=== PATIENT | female | born 1940 | race Caucasian/White ===

== ENCOUNTER 2020-10-22 08:15 | Emergency (ER) | payer MEDICARE ==
[~2020-10-22] VITALS: Ht 160 cm; Wt 81.8 kg
[~2020-10-22 08:15] MED LIST: ASCO500C18 PO; CLON0.3T PO; DILT120T3; FERR325T32 PO; MELA3TAB39 PO; METO50TA17 PO; ONDA-103 PO; PRED10TA23 PO; TRIA1CAP6 PO
[2020-10-22 09:37] LABS: BASOPHILS # (AUTO) 0.1 X10'3 (0-0.2); EOSINOPHILS # (AUTO) 0.2 X10'3 (0-0.9); HEMOGLOBIN 9.8 g/dl (12.0-16.0); LYMPHOCYTES % (AUTO) 21.2 % (21-51); MONOCYTES # (AUTO) 0.7 X10'3 (0-0.9)
[2020-10-22 09:39] LABS: EOSINOPHILS % (AUTO) 3.4 % (0-6); HEMATOCRIT 27.8 % (35.0-45.0); LYMPHOCYTES # (AUTO) 1.5 X10'3 (1.1-4.8); MEAN CORPUSCULAR HEMOGLOBIN 36.3 PG (27.0-31.0); MEAN CORPUSCULAR HGB CONC 35.3 g/dL (33.0-36.5); MEAN CORPUSCULAR VOLUME 102.8 FL (78-98); MEAN PLATELET VOLUME 7.3 FL (7.4-10.4); MONOCYTES % (AUTO) 9.6 % (2-12); NEUTROPHILS # (AUTO) 4.7 X10'3 (1.8-7.7); NEUTROPHILS % (AUTO) 64.8 % (42-75); PLATELET COUNT 261 X10'3 (140-440); RED CELL DISTRIBUTION WIDTH 20.8 % (11.5-14.5); WHITE BLOOD COUNT 7.3 X10'3 (4.5-11.0)
[2020-10-22 09:48] LABS: ALANINE AMINOTRANSFERASE 23 U/L (12-78); ALBUMIN 3.7 G/DL (3.4-5.0); ALBUMIN/GLOBULIN RATIO 0.9 (1.1-1.5); ALKALINE PHOSPHATASE 99 IU/L (46-116); ANION GAP 10 (8-16); ASPARTATE AMINO TRANSFERASE 39 U/L (10-37); BILIRUBIN,TOTAL 1.2 MG/DL (0.1-1.0); BLOOD UREA NITROGEN 15 MG/DL (7-18); BUN/CREATININE RATIO 16.3 (6.6-38.0); CALCIUM 8.9 MG/DL (8.5-10.1); CHLORIDE 104 MMOL/L (99-107); CREATININE 0.92 MG/DL (0.40-0.90); GLUCOSE 119 MG/DL (70-104); POTASSIUM 3.3 MMOL/L (3.5-5.1); SODIUM 145 MMOL/L (135-145); TOTAL CARBON DIOXIDE 31.2 MMOL/L (24-32); TOTAL PROTEIN 7.9 G/DL (6.4-8.2); eGFR 59 ML/MIN
[2020-10-22 11:25] LABS: HEMATOCRIT 26.6 % (35.0-45.0); HEMOGLOBIN 9.2 g/dl (12.0-16.0); MEAN CORPUSCULAR HEMOGLOBIN 36.1 PG (27.0-31.0); MEAN CORPUSCULAR HGB CONC 34.8 g/dL (33.0-36.5); MEAN CORPUSCULAR VOLUME 103.7 FL (78-98); MEAN PLATELET VOLUME 7.1 FL (7.4-10.4); PLATELET COUNT 239 X10'3 (140-440); RED BLOOD COUNT 2.56 X10'6 (4.20-5.60); RED CELL DISTRIBUTION WIDTH 20.9 % (11.5-14.5); WHITE BLOOD COUNT 8.2 X10'3 (4.5-11.0)
[2020-10-22 11:58] VITALS: BP 105/58
== END 2020-10-22 12:02 | disposition home or self-care (01) ==
LOC: ER 08:15
DX: R53.83 Other fatigue (principal); R53.1 Weakness; F17.200 Nicotine dependence, unspecified, uncomplicated; Z86.73 Personal history of transient ischemic attack (TIA), and cerebral infarction without residual deficits; Z88.5 Allergy status to narcotic agent; Z88.1 Allergy status to other antibiotic agents; Z88.0 Allergy status to penicillin; Z79.899 Other long term (current) drug therapy
CPT/HCPCS: 36415; 80053; 85025; 85027; 85610; 93005; 99284

== ENCOUNTER 2021-02-01 07:13 | Day surgery (SDC) | payer MEDICARE ==
[~2021-02-01] VITALS: Ht 160 cm; Wt 68.2 kg
[2021-02-01 07:35] VITALS: BP 143/79
[2021-02-01] MEDS ORDERED: fentaNYL/PF 50MCG/1 ML 2ML syringe ONE (07:52)
[2021-02-01] MEDS ORDERED: MIDAZolam 1 MG/ML 5ML VIAL ONE (07:52)
[2021-02-01] MEDS ORDERED: LIDOcaine Viscous 15ml cup ONE (07:52)
[2021-02-01 09:34] VITALS: BP 125/67
[2021-02-01 09:44] VITALS: BP 143/60
[2021-02-01 09:54] VITALS: BP 122/70
[2021-02-01 10:04] VITALS: BP 128/52
== END 2021-02-01 10:10 | disposition home or self-care (01) ==
LOC: GI LAB 07:13
PROVIDERS: ATTEND Internal Medicine Gastroenterology
DX: D50.9 Iron deficiency anemia, unspecified (principal); K29.80 Duodenitis without bleeding; K29.50 Unspecified chronic gastritis without bleeding; I10 Essential (primary) hypertension; Z87.891 Personal history of nicotine dependence; Z87.01 Personal history of pneumonia (recurrent); Z86.73 Personal history of transient ischemic attack (TIA), and cerebral infarction without residual deficits; Z79.899 Other long term (current) drug therapy
CPT/HCPCS: 43239; 99152; A4620; G0500; J2250; J3010; J7040

== ENCOUNTER 2023-08-27 15:00 | Emergency (ER) | payer MEDICARE ==
[~2023-08-27] VITALS: Ht 160 cm; Wt 68.2 kg
[~2023-08-27 15:00] MED LIST changes: -CLON0.3T PO; -DILT120T3; -MELA3TAB39 PO; -TRIA1CAP6 PO; +TRIA1CAP88 PO
[2023-08-27 16:30] VITALS: BP 121/79; PULSE 78; RESP 16; TEMP 98; O2SAT 99
[2023-08-27] MEDS ORDERED: CELE-193 PO (16:35)
[2023-08-27] MEDS: celeCOXIB 100mg capsule PO SCH (16:54)
== END 2023-08-27 17:00 | disposition home or self-care (01) ==
LOC: ER 15:00
DX: R07.81 Pleurodynia (principal); X50.1XXA Overexertion from prolonged static or awkward postures, initial encounter; Y93.89 Activity, other specified; Y92.89 Other specified places as the place of occurrence of the external cause; Y99.8 Other external cause status
CPT/HCPCS: 71111; 96372; 99283

== ENCOUNTER 2023-09-05 21:05 | Inpatient (IN) | payer MEDICARE ==
[~2023-09-05] VITALS: Ht 167.6 cm; Wt 68.2 kg
[~2023-09-05 21:05] MED LIST changes: +CELE-193 PO
[2023-09-05 23:00] LABS: BASOPHILS # (AUTO) 0.1 X10'3 (0-0.2); BASOPHILS % (AUTO) 0.7 % (0-1); EOSINOPHILS # (AUTO) 0.1 X10'3 (0-0.9); HEMATOCRIT 24.2 % (35.0-45.0); HEMOGLOBIN 8.2 g/dl (12.0-16.0); LYMPHOCYTES # (AUTO) 1.6 X10'3 (1.1-4.8); LYMPHOCYTES % (AUTO) 21.9 % (21-51); MEAN CORPUSCULAR HEMOGLOBIN 37.4 PG (27.0-31.0); MEAN CORPUSCULAR VOLUME 109.9 FL (78-98); MEAN PLATELET VOLUME 7.6 FL (7.4-10.4); MONOCYTES # (AUTO) 0.8 X10'3 (0-0.9); MONOCYTES % (AUTO) 10.2 % (2-12); NEUTROPHILS # (AUTO) 4.8 X10'3 (1.8-7.7); NEUTROPHILS % (AUTO) 65.2 % (42-75); PLATELET COUNT 213 X10'3 (140-440); RED CELL DISTRIBUTION WIDTH 16.3 % (11.5-14.5); WHITE BLOOD COUNT 7.4 X10'3 (4.5-11.0)
[2023-09-05] MEDS: acetaminophen 325mg tablet PO ONE (23:04)
[2023-09-05 23:07] LABS: ALANINE AMINOTRANSFERASE 16 U/L (12-78); ALBUMIN 3.7 G/DL (3.4-5.0); ALBUMIN/GLOBULIN RATIO 1.4 (1.1-1.5); ALKALINE PHOSPHATASE 65 IU/L (46-116); ANION GAP 10 (8-16); ASPARTATE AMINO TRANSFERASE 33 U/L (10-37); BILIRUBIN,TOTAL 1.8 MG/DL (0.1-1.0); BLOOD UREA NITROGEN 52 MG/DL (7-18); BUN/CREATININE RATIO 31.9 (10.0-20.0); CALCIUM 9.1 MG/DL (8.5-10.1); CHLORIDE 111 MMOL/L (99-107); CREATININE 1.63 MG/DL (0.40-0.90); GLUCOSE 102 MG/DL (70-104); POTASSIUM 3.8 MMOL/L (3.5-5.1); SODIUM 149 MMOL/L (135-145); TOTAL PROTEIN 6.4 G/DL (6.4-8.2); eCRCL 25 ML/MIN; eGFR 30 ML/MIN
[2023-09-05 23:11] LABS: INR 4.4 INR; LIPASE 31 U/L (16-77); MAGNESIUM 3.8 MG/DL (1.5-2.4)
[2023-09-05 23:48] LABS: ANISOCYTOSIS 1+; PLATELET ESTIMATE NORMAL; POLYCHROMASIA FEW; TOTAL CELLS COUNTED 100
[2023-09-06 00:02] LABS: BILIRUBIN,URINE NEGATIVE (Neg); CLARITY,URINE CLOUDY (Clear); COLOR,URINE YELLOW (Yellow); GLUCOSE, URINE NEGATIVE (Neg); KETONES,URINE 15 mg/dl (Neg); LEUKOCYTE ESTERASE ,URINE SMALL (Neg); NITRITES, URINE POSITIVE (Neg); OCCULT BLOOD,URINE NEGATIVE (Neg); PH,URINE 5.5 (4.8-8.0); PROTEIN,URINE NEGATIVE (Neg); UROBILINOGEN,URINE 0.2 E.U/dL (0.2-1.0)
[2023-09-06] MEDS: normal saline 1000ml 1,000 ML IV ONE (00:11)
[2023-09-06] MEDS: acetaminophen 1,000mg/100ml IV 100 ML IV ONE (00:11)
[2023-09-06 00:17] LABS: UA COLLECTION TYPE STRAIGHT CATH
[2023-09-06 00:19] LABS: BACTERIA,URINE 4+ /HPF (Neg); RBC,URINE 0-2 /HPF (0-2); WBC,URINE 20-30 /HPF (0-4)
[2023-09-06 00:20] LABS: AMORPHOUS URATES 1+; MUCUS STRANDS FEW /LPF (Neg); RENAL CELLS, URINE FEW /HPF; SQUAMOUS EPITHELIAL CELL,UR MODERATE /LPF (FEW); WBC CLUMPS,URINE FEW /HPF (NEGATIVE)
[2023-09-06] MEDS: CefTRIAXone/D5W-Rocephin 1gm 50 ML IV ONE (02:20)
[2023-09-06] MEDS ORDERED: mag hydrox/Alum hydrox/simeth 30ml oral suspension PO PRN (03:20)
[2023-09-06] MEDS ORDERED: potassium Cl 20 mEq SR tablet PO PRN ×2 (03:20)
[2023-09-06] MEDS ORDERED: magnesium 4gm in 100ml NS 100 ML IV PRN (03:20)
[2023-09-06] MEDS ORDERED: potassium Cl 40MEQ/1/2NS 520ml 520 ML IV PRN (03:20)
[2023-09-06] MEDS ORDERED: magnesium Cl slow-release 64mg tablet PO PRN (03:20)
[2023-09-06] MEDS: normal saline 1000ml 1,000 ML IV SCH (03:49)
[2023-09-06] MEDS: docusate sod 100mg capsule PO ONE (05:40)
[2023-09-06 06:00] VITALS: BP_SYST 117; PULSE 84; RESP 16; TEMP 97.8; O2SAT 100
[2023-09-06 07:20] VITALS: RESP 11; O2SAT 99
[2023-09-06 08:00] VITALS: RESP 16
[2023-09-06] MEDS: heparin, porcine 5000 units/ml vial SQ SCH (08:00)
[2023-09-06 09:00] LABS: THYROID STIMULATING HORMONE 1.33 ulU/ml (0.34-4.50)
[2023-09-06] MEDS: docusate sod 100mg capsule PO SCH (09:01)
[2023-09-06] MEDS: sennosides/docusate sodium tablet PO SCH (09:01)
[2023-09-06] MEDS: lansoprazole 15mg solutab PO SCH (09:02)
[2023-09-06] MEDS: CefTRIAXone 2gm/D5W 50ml BAG 50 ML IV SCH (09:03)
[2023-09-06 10:00] VITALS: BP 128/62; PULSE 76; RESP 20; TEMP 98.4; O2SAT 100
[2023-09-06] MEDS: dextrose 5%-water 1,000 ML IV SCH (11:25)
[2023-09-06] MEDS: HYDROcodone/acetaminophen 5mg/325mg tablet PO PRN (15:06)
[2023-09-06] MEDS: magnesium hydroxide 30ml (MOM) UD suspension PO PRN (15:06)
[2023-09-06] MEDS ORDERED: GABA300C PO (16:04)
[2023-09-06] MEDS ORDERED: OMEP20CA16 PO (16:04)
[2023-09-06] MEDS ORDERED: WARF2.5T82 PO (16:04)
[2023-09-06] MEDS ORDERED: AMLO5TAB16 PO (16:04)
[2023-09-06] MEDS ORDERED: CELE-148 PO (16:04)
[2023-09-06 20:00] VITALS: RESP 16; O2SAT 99
[2023-09-06] MEDS: mineral oil 133ml enema RC ONE (20:04)
[2023-09-06] MEDS: polyethylene glycol 3350 17gm powd pack PO SCH (20:05)
[2023-09-06] MEDS ORDERED: temazepam 15mg capsule PO PRN (21:00)
[2023-09-06 22:00] VITALS: BP 113/54; PULSE 80; RESP 16; TEMP 97.5; O2SAT 99
[2023-09-07] MEDS: acetaminophen 325mg tablet PO PRN (00:55)
[2023-09-07 06:00] VITALS: BP 124/56; PULSE 75; RESP 18; TEMP 98; O2SAT 97
[2023-09-07 06:03] LABS: BASOPHILS % (AUTO) 0.4 % (0-1); EOSINOPHILS # (AUTO) 0.3 X10'3 (0-0.9); EOSINOPHILS % (AUTO) 4.6 % (0-6); HEMOGLOBIN 7.6 g/dl (12.0-16.0); LYMPHOCYTES # (AUTO) 0.7 X10'3 (1.1-4.8); LYMPHOCYTES % (AUTO) 13.7 % (21-51); MEAN CORPUSCULAR HGB CONC 35.2 g/dL (33.0-36.5); MEAN PLATELET VOLUME 7.9 FL (7.4-10.4); MONOCYTES # (AUTO) 0.4 X10'3 (0-0.9); NEUTROPHILS % (AUTO) 73.3 % (42-75); PLATELET COUNT 196 X10'3 (140-440); RED CELL DISTRIBUTION WIDTH 16.7 % (11.5-14.5); WHITE BLOOD COUNT 5.4 X10'3 (4.5-11.0)
[2023-09-07 06:09] LABS: ALBUMIN 3.1 G/DL (3.4-5.0); ANION GAP 6 (8-16); BLOOD UREA NITROGEN 33 MG/DL (7-18); BUN/CREATININE RATIO 39.3 (10.0-20.0); CALCIUM 8.2 MG/DL (8.5-10.1); CHLORIDE 107 MMOL/L (99-107); CREATININE 0.84 MG/DL (0.40-0.90); GLUCOSE 109 MG/DL (70-104); POTASSIUM 3.6 MMOL/L (3.5-5.1); SODIUM 142 MMOL/L (135-145); TOTAL CARBON DIOXIDE 28.9 MMOL/L (24-32); eCRCL 49 ML/MIN; eGFR 65 ML/MIN
[2023-09-07 06:13] LABS: HEMATOCRIT 21.6 % (35.0-45.0)
[2023-09-07] MEDS: pantoprazole 40mg Tablet.DR PO SCH (07:00)
[2023-09-07 10:00] VITALS: BP 128/67; PULSE 73; RESP 14; TEMP 98.4; O2SAT 100
[2023-09-07] MEDS: amLODIPine 5mg tablet PO SCH (12:03)
[2023-09-07] MEDS: lactose-reduced food (Ensure Enlive) - 237ml bottle PO SCH (13:00)
[2023-09-07 18:00] VITALS: BP 129/63; PULSE 77; RESP 16; TEMP 97.9; O2SAT 96
[2023-09-07 20:00] VITALS: RESP 16; O2SAT 96
[2023-09-07] MEDS: ondansetron/PF 4mg/2ml inj IV PRN (21:34)
[2023-09-07 22:00] VITALS: BP 117/54; PULSE 86; RESP 20; TEMP 97.3; O2SAT 95
[2023-09-07 23:55] LABS: OCCULT BLOOD STOOL NEGATIVE (Neg)
[2023-09-08 05:52] LABS: BASOPHILS % (AUTO) 0.6 % (0-1); EOSINOPHILS # (AUTO) 0.2 X10'3 (0-0.9); EOSINOPHILS % (AUTO) 3.6 % (0-6); HEMOGLOBIN 7.4 g/dl (12.0-16.0); LYMPHOCYTES # (AUTO) 0.9 X10'3 (1.1-4.8); LYMPHOCYTES % (AUTO) 17.8 % (21-51); MEAN CORPUSCULAR HEMOGLOBIN 37.4 PG (27.0-31.0); MEAN CORPUSCULAR HGB CONC 34.6 g/dL (33.0-36.5); MEAN CORPUSCULAR VOLUME 107.8 FL (78-98); MEAN PLATELET VOLUME 7.8 FL (7.4-10.4); MONOCYTES # (AUTO) 0.5 X10'3 (0-0.9); MONOCYTES % (AUTO) 9.3 % (2-12); NEUTROPHILS # (AUTO) 3.5 X10'3 (1.8-7.7); NEUTROPHILS % (AUTO) 68.7 % (42-75); PLATELET COUNT 209 X10'3 (140-440); RED BLOOD COUNT 1.99 X10'6 (4.20-5.60); RED CELL DISTRIBUTION WIDTH 17.1 % (11.5-14.5); WHITE BLOOD COUNT 5.1 X10'3 (4.5-11.0)
[2023-09-08 06:00] VITALS: BP 113/60; PULSE 89; RESP 18; TEMP 98.2; O2SAT 95
[2023-09-08 06:04] LABS: HEMATOCRIT 21.4 % (35.0-45.0)
[2023-09-08 06:11] LABS: ANION GAP 7 (8-16); BLOOD UREA NITROGEN 18 MG/DL (7-18); CALCIUM 8.7 MG/DL (8.5-10.1); CHLORIDE 104 MMOL/L (99-107); GLUCOSE 110 MG/DL (70-104); SODIUM 139 MMOL/L (135-145); TOTAL CARBON DIOXIDE 27.9 MMOL/L (24-32); eCRCL 69 ML/MIN; eGFR > 90 ML/MIN
[2023-09-08 06:16] LABS: POTASSIUM 3.6 MMOL/L (3.5-5.1)
[2023-09-08 09:00] VITALS: RESP 18
[2023-09-08] MEDS: normal saline 500ml IV soln 500 ML IV ONE (09:00)
[2023-09-08 10:00] VITALS: BP 125/55; PULSE 82; RESP 20; TEMP 97.4; O2SAT 100
[2023-09-08 15:39] LABS: PROTHROMBIN TIME 48.2 SECONDS (9.0-12.0)
[2023-09-08] MEDS ORDERED: phytonadione inj. 1 MG in normal saline 100ml IV soln 100 ML IV ONE (18:15)
[2023-09-08 19:00] VITALS: BP 137/69; PULSE 86; RESP 22; TEMP 97.6; O2SAT 99
[2023-09-08] MEDS: phytonadione inj. 1 MG in normal saline 100ml IV soln 100 ML IV ONE (19:38)
[2023-09-08 22:00] VITALS: BP 128/71; PULSE 64; RESP 18; TEMP 98; O2SAT 100
[2023-09-09] VITALS (12 sets, daily range): BP systolic 101–136; BP diastolic 53–74; PULSE 90–104; RESP 14–22; TEMP 97.2–99; O2SAT 94–99
[2023-09-09 06:09] LABS: ANION GAP 7 (8-16); BLOOD UREA NITROGEN 12 MG/DL (7-18); BUN/CREATININE RATIO 18.8 (10.0-20.0); CALCIUM 8.5 MG/DL (8.5-10.1); CHLORIDE 104 MMOL/L (99-107); CREATININE 0.64 MG/DL (0.40-0.90); GLUCOSE 114 MG/DL (70-104); POTASSIUM 3.4 MMOL/L (3.5-5.1); SODIUM 141 MMOL/L (135-145); TOTAL CARBON DIOXIDE 30.1 MMOL/L (24-32); eCRCL 65 ML/MIN; eGFR 89 ML/MIN
[2023-09-09 06:19] LABS: BASOPHILS % (AUTO) 0.7 % (0-1); EOSINOPHILS # (AUTO) 0.2 X10'3 (0-0.9); EOSINOPHILS % (AUTO) 3.3 % (0-6); LYMPHOCYTES # (AUTO) 1.2 X10'3 (1.1-4.8); LYMPHOCYTES % (AUTO) 18.7 % (21-51); MEAN CORPUSCULAR HEMOGLOBIN 37.3 PG (27.0-31.0); MEAN CORPUSCULAR HGB CONC 34.8 g/dL (33.0-36.5); MEAN CORPUSCULAR VOLUME 107.2 FL (78-98); MONOCYTES # (AUTO) 0.7 X10'3 (0-0.9); MONOCYTES % (AUTO) 10.9 % (2-12); NEUTROPHILS # (AUTO) 4.3 X10'3 (1.8-7.7); NEUTROPHILS % (AUTO) 66.4 % (42-75); PLATELET COUNT 208 X10'3 (140-440); RED CELL DISTRIBUTION WIDTH 17.9 % (11.5-14.5); WHITE BLOOD COUNT 6.5 X10'3 (4.5-11.0)
[2023-09-09 06:24] LABS: HEMATOCRIT 19.3 % (35.0-45.0); HEMOGLOBIN 6.7 g/dl (12.0-16.0)
[2023-09-09 07:57] LABS: INR 1.9 INR; PROTHROMBIN TIME 19.2 SECONDS (9.0-12.0)
[2023-09-09] MEDS ORDERED: magnesium 4gm in 100ml NS 100 ML IV PRN (10:05)
[2023-09-09] MEDS ORDERED: magnesium Cl slow-release 64mg tablet PO PRN (10:05)
[2023-09-09] MEDS ORDERED: potassium Cl 20 mEq SR tablet PO PRN (10:05)
[2023-09-09] MEDS ORDERED: potassium Cl 40MEQ/1/2NS 520ml 520 ML IV PRN (10:05)
[2023-09-09] MEDS ORDERED: magnesium 2GM in 50ml NS 50 ML IV PRN (10:05)
[2023-09-09] MEDS: potassium Cl 20 mEq SR tablet PO PRN (11:37)
[2023-09-09] MEDS: CefTRIAXone/D5W-Rocephin 1gm 50 ML IV SCH (17:30)
[2023-09-09 17:44] LABS: BILIRUBIN,URINE NEGATIVE (Neg); CLARITY,URINE CLEAR (Clear); COLOR,URINE YELLOW (Yellow); GLUCOSE, URINE NEGATIVE (Neg); KETONES,URINE NEGATIVE (Neg); LEUKOCYTE ESTERASE ,URINE NEGATIVE (Neg); NITRITES, URINE NEGATIVE (Neg); OCCULT BLOOD,URINE TRACE-INTACT (Neg); PH,URINE 5.5 (4.8-8.0); PROTEIN,URINE NEGATIVE (Neg); UROBILINOGEN,URINE 0.2 E.U/dL (0.2-1.0)
[2023-09-09 17:54] LABS: UA COLLECTION TYPE NON-SPECIFIED
[2023-09-09 17:56] LABS: BACTERIA,URINE NONE SEEN /HPF (Neg); RBC,URINE NONE SEEN /HPF (0-2); SQUAMOUS EPITHELIAL CELL,UR MANY /LPF (FEW); WBC,URINE 0-4 /HPF (0-4)
[2023-09-10 01:15] VITALS: BP 132/67; PULSE 89; RESP 20; TEMP 98.2
[2023-09-10 06:55] VITALS: BP 118/67; PULSE 91; RESP 14; TEMP 97.7; O2SAT 98
[2023-09-10 07:42] LABS: BASOPHILS % (AUTO) 0.6 % (0-1); EOSINOPHILS # (AUTO) 0.2 X10'3 (0-0.9); EOSINOPHILS % (AUTO) 3.2 % (0-6); HEMATOCRIT 26.7 % (35.0-45.0); HEMOGLOBIN 9.5 g/dl (12.0-16.0); LYMPHOCYTES # (AUTO) 1.4 X10'3 (1.1-4.8); LYMPHOCYTES % (AUTO) 19.6 % (21-51); MEAN CORPUSCULAR HEMOGLOBIN 34.3 PG (27.0-31.0); MEAN CORPUSCULAR HGB CONC 35.6 g/dL (33.0-36.5); MEAN CORPUSCULAR VOLUME 96.3 FL (78-98); MONOCYTES # (AUTO) 0.8 X10'3 (0-0.9); MONOCYTES % (AUTO) 11.8 % (2-12); NEUTROPHILS # (AUTO) 4.6 X10'3 (1.8-7.7); NEUTROPHILS % (AUTO) 64.8 % (42-75); PLATELET COUNT 169 X10'3 (140-440); RED BLOOD COUNT 2.77 X10'6 (4.20-5.60); WHITE BLOOD COUNT 7.1 X10'3 (4.5-11.0)
[2023-09-10 07:51] LABS: ANION GAP 5 (8-16); BLOOD UREA NITROGEN 13 MG/DL (7-18); CALCIUM 8.5 MG/DL (8.5-10.1); CHLORIDE 105 MMOL/L (99-107); CREATININE 0.59 MG/DL (0.40-0.90); GLUCOSE 106 MG/DL (70-104); POTASSIUM 3.9 MMOL/L (3.5-5.1); SODIUM 141 MMOL/L (135-145); TOTAL CARBON DIOXIDE 30.6 MMOL/L (24-32); eCRCL 70 ML/MIN; eGFR > 90 ML/MIN
[2023-09-10 08:05] LABS: INR 1.1 INR; PROTHROMBIN TIME 11.4 SECONDS (9.0-12.0)
[2023-09-10 09:41] VITALS: RESP 18; O2SAT 98
[2023-09-10 10:12] LABS: ANISOCYTOSIS 2+; PLATELET ESTIMATE NORMAL
[2023-09-10 11:30] VITALS: RESP 16
[2023-09-10 19:00] VITALS: BP 109/67; PULSE 95; RESP 16; RESP 18; TEMP 98.2; O2SAT 96
[2023-09-10 22:00] VITALS: BP 122/66; PULSE 92; RESP 16; TEMP 96.6; O2SAT 99
[2023-09-11 05:31] LABS: BASOPHILS # (AUTO) 0.2 X10'3 (0-0.2); BASOPHILS % (AUTO) 2.4 % (0-1); EOSINOPHILS # (AUTO) 0.3 X10'3 (0-0.9); EOSINOPHILS % (AUTO) 3.4 % (0-6); HEMATOCRIT 26.5 % (35.0-45.0); HEMOGLOBIN 9.2 g/dl (12.0-16.0); LYMPHOCYTES # (AUTO) 1.2 X10'3 (1.1-4.8); LYMPHOCYTES % (AUTO) 16.8 % (21-51); MEAN CORPUSCULAR HEMOGLOBIN 33.9 PG (27.0-31.0); MEAN CORPUSCULAR HGB CONC 34.7 g/dL (33.0-36.5); MEAN CORPUSCULAR VOLUME 97.8 FL (78-98); MEAN PLATELET VOLUME 8.1 FL (7.4-10.4); MONOCYTES # (AUTO) 0.6 X10'3 (0-0.9); MONOCYTES % (AUTO) 8.3 % (2-12); NEUTROPHILS # (AUTO) 5.1 X10'3 (1.8-7.7); NEUTROPHILS % (AUTO) 69.1 % (42-75); PLATELET COUNT 186 X10'3 (140-440); RED BLOOD COUNT 2.71 X10'6 (4.20-5.60); RED CELL DISTRIBUTION WIDTH 20.2 % (11.5-14.5); WHITE BLOOD COUNT 7.4 X10'3 (4.5-11.0)
[2023-09-11 05:39] LABS: INR 1.1 INR
[2023-09-11 05:43] LABS: ALBUMIN 3.1 G/DL (3.4-5.0); ANION GAP 7 (8-16); BLOOD UREA NITROGEN 13 MG/DL (7-18); BUN/CREATININE RATIO 22.4 (10.0-20.0); CALCIUM 8.9 MG/DL (8.5-10.1); CHLORIDE 104 MMOL/L (99-107); CREATININE 0.58 MG/DL (0.40-0.90); GLUCOSE 107 MG/DL (70-104); POTASSIUM 3.7 MMOL/L (3.5-5.1); SODIUM 138 MMOL/L (135-145); TOTAL CARBON DIOXIDE 26.6 MMOL/L (24-32); eCRCL 71 ML/MIN; eGFR > 90 ML/MIN
[2023-09-11 05:44] LABS: PROTHROMBIN TIME 11.3 SECONDS (9.0-12.0)
[2023-09-11 06:00] VITALS: BP 122/70; PULSE 92; RESP 16; TEMP 97.6; O2SAT 99
[2023-09-11 08:07] LABS: ANISOCYTOSIS 3+; NUCLEATED RED BLOOD CELLS 1 /100WBC (0-0); PLATELET ESTIMATE NORMAL; SMUDGE CELLS FEW; TOTAL CELLS COUNTED 100
[2023-09-11 08:08] LABS: LARGE PLATELETS FEW; POLYCHROMASIA 1+; ROULEAUX 1+
[2023-09-11 09:00] VITALS: RESP 16
[2023-09-11 10:03] VITALS: BP_SYST 122; PULSE 92
[2023-09-11 11:08] VITALS: RESP 16
== END 2023-09-11 12:57 | DRG 871 ==
LOC: ER 21:05 → ED HOLD 09-06 03:49 → EDBEDREQ 09-06 03:57 → SUR 3N 09-06 05:40
PROVIDERS: ADMIT Internal Medicine Pulmonary Disease; ATTEND Family Medicine
PROC: 30233N1 Transfusion of Nonautologous Red Blood Cells into Peripheral Vein, Percutaneous Approach (ICD-10-PCS; principal; 2023-09-09)
DX: A41.9 Sepsis, unspecified organism (principal); N17.0 Acute kidney failure with tubular necrosis; E87.0 Hyperosmolality and hypernatremia; N39.0 Urinary tract infection, site not specified; D64.9 Anemia, unspecified; K80.20 Calculus of gallbladder without cholecystitis without obstruction; K59.09 Other constipation; R62.7 Adult failure to thrive; R26.9 Unspecified abnormalities of gait and mobility; Z88.0 Allergy status to penicillin; Z88.1 Allergy status to other antibiotic agents; Z88.5 Allergy status to narcotic agent; Z79.899 Other long term (current) drug therapy; Z86.73 Personal history of transient ischemic attack (TIA), and cerebral infarction without residual deficits; Z99.3 Dependence on wheelchair; Z68.24 Body mass index [BMI] 24.0-24.9, adult
CPT/HCPCS: 36415; 36430; 70450; 71045; 71250; 74176; 76700; 80048; 80053; 81001; 81003; 82140; 82272; 83690; 83735; 84443; 84484; 85007; 85008; 85025; 85610; 86870; 86880; 86885; 86900; 86901; 86920; 86922; 87077; 87081; 87088; 87186; 92508; 92616; 93308; 97161; 97530; 99285; A6212; A6213; A6250; A6258; A6449; G0378; J0131; J0696; J2405; J3430; J3490; J7030; J7040; J7042; J7070; P9016